=== PATIENT | female | born 1970 | race Caucasian/White ===

== ENCOUNTER 2022-04-12 00:08 | Emergency (ER) | payer MEDICAID ==
[~2022-04-12] VITALS: Ht 154.9 cm; Wt 78.1 kg
[2022-04-12 00:23] VITALS: BP 112/79
== END 2022-04-12 01:46 | disposition left against medical advice (07) ==
LOC: ER 00:08
DX: Z53.21 Procedure and treatment not carried out due to patient leaving prior to being seen by health care provider (principal); I49.9 Cardiac arrhythmia, unspecified
CPT/HCPCS: 93005

== ENCOUNTER 2022-04-15 04:54 | Inpatient (IN) | payer MEDICAID ==
[~2022-04-15] VITALS: Ht 162.6 cm; Wt 74.8 kg
[2022-04-15] MEDS ORDERED: ONDANSETRON HCL 4MG/2ML INJ IV STA (06:56)
[2022-04-15] MEDS ORDERED: KETOROLAC 30MG/ML VIAL IV STA (06:56)
[2022-04-15 08:09] LABS: BASOPHILS % 0.4 % (0.0-2.0); EOSINOPHILS % 1.5 % (0.0-5.0); HEMATOCRIT. 41.2 % (36.0-48.0); HEMOGLOBIN. 13.7 g/dL (12.0-16.0); LYMPHOCYTES % 15.5 % (20.0-50.0); MEAN CORPUSCULAR HEMOGLOBIN 30.6 pg (28.0-32.0); MEAN CORPUSCULAR VOLUME 92.5 fL (81.0-99.0); MEAN PLATELET VOLUME 9.6 fl (7.4-10.4); MONOCYTES % 3.8 % (2.0-8.0); NEUTROPHILS % 78.8 % (40.0-76.0); PLATELET 239 x1000/uL (130-400); RED BLOOD CELL COUNT 4.46 mill/uL (4.2-5.4)
[2022-04-15 08:15] LABS: CHLORIDE 112 mEq/L (98-107)
[2022-04-15 08:17] LABS: PROTHROMBIN TIME 10.3 sec (9.6-11.0)
[2022-04-15 08:51] LABS: CLARITY URINE CLEAR (CLEAR); COLOR URINE YELLOW (YELLOW); KETONES URINE NEGATIVE (NEGATIVE); LEUKOCYTE ESTERASE URINE NEGATIVE (NEGATIVE); NITRITE URINE NEGATIVE (NEGATIVE); OCCULT BLOOD URINE NEGATIVE (NEGATIVE); PH URINE 5.5 (4.5-8.0); PROTEIN URINE NEGATIVE (NEGATIVE); SPECIFIC GRAVITY URINE 1.023 (1.005-1.030); UROBILINOGEN URINE 0.2 E.U./dL (0.2-1.0)
[2022-04-15] MEDS ORDERED: METRONIDAZOLE 500 MG PREMIX 100 ML IV ONE (13:15)
[2022-04-15] MEDS ORDERED: LEVOFLOXACIN 750MG PREMIX 150 ML IV ONE (13:15)
[2022-04-15] MEDS ORDERED: MORPHINE SULFATE 2 MG/ML CPJ (NOT FOR IM USE) IV PRN ×2 (16:52→18:45)
[2022-04-15] MEDS ORDERED: MAGNESIUM/ALUMINUM HYDROXIDE/SIMETHICONE 30ML UDC PO PRN (18:45)
[2022-04-15] MEDS ORDERED: ACETAMINOPHEN 325MG TABLET PO PRN (18:45)
[2022-04-15] MEDS ORDERED: ONDANSETRON HCL 4MG/2ML INJ IV PRN ×2 (18:45)
[2022-04-15] MEDS ORDERED: CLONIDINE 0.1MG TABLET PO PRN (18:45)
[2022-04-15] MEDS ORDERED: HYDROCODONE/ACETAMINOPHEN 5/325MG TABLET PO PRN (18:45)
[2022-04-15] MEDS ORDERED: NALOXONE HCL 0.4MG/ML VIAL IV PRN (19:15)
[2022-04-15 20:00] VITALS: BP 92/52
[2022-04-15 22:00] VITALS: BP 92/52
[2022-04-16] VITALS: BP 95/58
[2022-04-16] MEDS: ENOXAPARIN 40MG/0.4ML SYR SUBCUT SCH ×2 (00:10→21:00)
[2022-04-16] MEDS: DEXT 5%/0.45% NACL KCL 20MEQ/L 1,000 ML IV SCH ×3 (00:52→16:20)
[2022-04-16 04:00] VITALS: BP 99/52
[2022-04-16 07:08] LABS: BASOPHILS % 0.7 % (0.0-2.0); EOSINOPHILS % 4.9 % (0.0-5.0); HEMOGLOBIN. 13.4 g/dL (12.0-16.0); LYMPHOCYTES % 42.7 % (20.0-50.0); MEAN CORPUSCULAR HEMOGLOBIN 31.3 pg (28.0-32.0); MEAN PLATELET VOLUME 9.9 fl (7.4-10.4); MONOCYTES % 5.9 % (2.0-8.0); NEUTROPHILS % 45.8 % (40.0-76.0); PLATELET 217 x1000/uL (130-400); RED BLOOD CELL COUNT 4.28 mill/uL (4.2-5.4); RED CELL DISTRIBUTION WIDTH 13.9 % (11.6-14.6)
[2022-04-16] MEDS ORDERED: OMEPRAZOLE 20MG CAPSULE EXTENDED RELEASE PO SCH (07:20)
[2022-04-16 08:00] VITALS: BP 98/65
[2022-04-16 09:28] LABS: CHLORIDE 111 mEq/L (98-107)
[2022-04-16 12:00] VITALS: BP 104/62
[2022-04-16] MEDS ORDERED: LEVOFLOXACIN 500MG PREMIX 100 ML IV SCH (14:00)
[2022-04-16 16:00] VITALS: BP 96/57
[2022-04-16 20:00] VITALS: BP 100/65
== END 2022-04-16 21:50 | disposition left against medical advice (07) ==
LOC: ER 04:54 → EDBEDREQTM 12:35 → EDBEDREQ 12:35 → ENRESERV 17:21 → 6EST 18:11
PROVIDERS: ADMIT Internal Medicine; ATTEND Internal Medicine
DX: K80.70 Calculus of gallbladder and bile duct without cholecystitis without obstruction (principal); K76.89 Other specified diseases of liver; Z90.49 Acquired absence of other specified parts of digestive tract; Z53.29 Procedure and treatment not carried out because of patient's decision for other reasons; Z20.822 Contact with and (suspected) exposure to COVID-19
CPT/HCPCS: 36415; 71045; 74176; 76705; 80048; 80053; 81003; 85025; 87426; 93970; 99285; C9803; J1650; J1885; J1956; J2270; J2405; J3490

== ENCOUNTER 2023-09-16 17:58 | Emergency (ER) | payer MEDICAID ==
[~2023-09-16] VITALS: Ht 162.6 cm; Wt 91.0 kg
[2023-09-16 18:10] VITALS: BP 118/82; PULSE 72; RESP 16; TEMP 98.1; O2SAT 98
[2023-09-16 19:34] LABS: CLARITY URINE CLEAR (CLEAR); COLOR URINE YELLOW (YELLOW); GLUCOSE URINE NEGATIVE (NEGATIVE); KETONES URINE NEGATIVE (NEGATIVE); LEUKOCYTE ESTERASE URINE NEGATIVE (NEGATIVE); NITRITE URINE POSITIVE (NEGATIVE); OCCULT BLOOD URINE TRACE (NEGATIVE); PROTEIN URINE NEGATIVE (NEGATIVE); UROBILINOGEN URINE 0.2 E.U./dL (0.2-1.0)
[2023-09-16 19:48] LABS: BACTERIA URINE 3+; SQUAMOUS EPITHELIAL CELL URINE FEW /lpf (RARE/1+)
[2023-09-16 19:49] LABS: RBC URINE 0-2 /hpf (0-2); WBC URINE 0-2 /hpf (0-2)
[2023-09-16 19:57] LABS: BASOPHILS % 0.5 % (0.0-2.0); EOSINOPHILS % 2.9 % (0.0-5.0); HEMOGLOBIN. 14.4 g/dL (12.0-16.0); LYMPHOCYTES % 37.6 % (20.0-50.0); MEAN CORPUSCULAR HEMOGLOBIN 31.1 pg (28.0-32.0); MEAN CORPUSCULAR HGB CONC 33.4 g/dL (31.0-37.0); MEAN PLATELET VOLUME 9.9 fl (7.4-10.4); MONOCYTES % 5.7 % (2.0-8.0); NEUTROPHILS % 53.3 % (40.0-76.0); PLATELET 247 x1000/uL (130-400); RED BLOOD CELL COUNT 4.62 mill/uL (4.2-5.4); RED CELL DISTRIBUTION WIDTH 13.6 % (11.6-14.6); WHITE BLOOD COUNT 7.7 x1000/uL (4.5-11.0)
[2023-09-16 20:09] LABS: ALANINE AMINOTRANSFERASE 38 IU/L (10-49); ALBUMIN 4.3 g/dL (3.2-4.8); ASPARTATE AMINOTRANSFERASE 25 IU/L (<34); BILIRUBIN TOTAL 0.5 mg/dL (0.1-1.0); CALCIUM 9.1 mg/dL (8.7-10.4); CARBON DIOXIDE 26 mEq/L (21-32); CHLORIDE 107 mEq/L (98-107); CREATININE 0.7 mg/dL (0.6-1.0); GLUCOSE 100 mg/dL (70-105); POTASSIUM 3.8 mEq/L (3.5-5.1); PROTEIN TOTAL 7.6 g/dL (6.0-8.3); SODIUM 140 mEq/L (136-145); UREA NITROGEN BLOOD 9 mg/dL (9-23)
[2023-09-16] MEDS ORDERED: FAMOTIDINE 20MG TABLET PO ONE (20:15)
[2023-09-16] MEDS ORDERED: KETOROLAC 30MG/ML VIAL IM ONE (20:15)
[2023-09-16 20:20] LABS: TROPONIN I HIGH SENSITIVITY < 4 ng/L (3.0-34)
[2023-09-16] MEDS ORDERED: IBUP-2029 MT (21:45)
== END 2023-09-16 22:03 | disposition home or self-care (01) ==
LOC: ER 17:58
DX: K80.20 Calculus of gallbladder without cholecystitis without obstruction (principal); Z90.49 Acquired absence of other specified parts of digestive tract; Z98.890 Other specified postprocedural states
CPT/HCPCS: 36415; 76700; 80053; 81003; 81025; 84484; 85025; 99284

== ENCOUNTER 2024-04-15 11:01 | Emergency (ER) | payer MEDICAID ==
[~2024-04-15] VITALS: Ht 157.5 cm; Wt 79.0 kg
[~2024-04-15 11:01] MED LIST: IBUP-2029 MT
[2024-04-15 11:03] VITALS: O2SAT 97
[2024-04-15 11:06] VITALS: TEMP 98.1
[2024-04-15] MEDS: HYDROCODONE/ACETAMINOPHEN 5/325MG TABLET PO ONE (11:43)
[2024-04-15] MEDS: LIDOCAINE HCL/EPINEPHRINE 1%-EPI 1:100,000 20 ML VIAL INFIL ONE (11:50)
[2024-04-15] MEDS: BACITRACIN ZINC OINT UDPKT TOP ONE (11:50)
[2024-04-15] MEDS ORDERED: CEPH500C2 MT (12:18)
[2024-04-15] MEDS ORDERED: IBUP-2030 MT (12:18)
[2024-04-15] MEDS ORDERED: DOXY100T28 MT (12:18)
[2024-04-15 12:58] VITALS: BP 113/79; PULSE 91; RESP 20
[2024-04-15] MEDS: KETOROLAC 30MG/ML VIAL IM ONE (12:58)
== END 2024-04-15 13:11 | disposition home or self-care (01) ==
LOC: ER 11:01
DX: L02.413 Cutaneous abscess of right upper limb (principal); Z90.49 Acquired absence of other specified parts of digestive tract; Z98.890 Other specified postprocedural states
CPT/HCPCS: 81025; 73080; 10060; 96372; 99283; J1885; J3490; Z7610 ×3

== ENCOUNTER 2024-04-17 19:46 | Emergency (ER) | payer MEDICAID ==
[~2024-04-17] VITALS: Ht 157.5 cm; Wt 75.0 kg
[~2024-04-17 19:46] MED LIST changes: +CEPH500C2 MT; +DOXY100T28 MT; +IBUP-2030 MT
[2024-04-17 20:15] VITALS: BP 123/85; PULSE 61; TEMP 97.7; O2SAT 100
[2024-04-17 23:07] VITALS: RESP 18
== END 2024-04-17 23:08 | disposition home or self-care (01) ==
LOC: ER 19:46
DX: M65.031 Abscess of tendon sheath, right forearm (principal)
CPT/HCPCS: 99281; Z7610 ×2